=== PATIENT | female | born 1975 | race Hispanic/Latino ===

== ENCOUNTER 2019-10-05 01:21 | Emergency (ER) | payer OTHER ==
[~2019-10-05] VITALS: Ht 149.9 cm; Wt 65.8 kg
--- OUTSIDE RECORDS SUMMARY | ~2019-10-05 | XMS | Encounter Summary ---
Demographics + + + | Address | [address] | | | [place] [address] | + + + | Home Phone | | + + + | Preferred Language | Unknown | + + + | Marital Status | Single | + + + | Zoroastrianism Affiliation | 1041 | + + + | Race | Unknown | + + + | Ethnic Group | Unknown | + + + Author + + + | Author | [facility] | | | and [place] | + + + | Organization | [facility] | | | and [place] | + + + | Address | Unknown | + + + | Phone | Unavailable | + + + Support + + +---------+ + | Name | Relationship | Address | Phone | + + +---------+ + | Augusta Mcgrath | ECON | Unknown | | + + +---------+ + Care Team Providers + +------+ + | Care Boiler Repairman Name | Role | Phone | + +------+ + | Ashli Berman | PCP | | + +------+ + Encounter Details +--------+ + + + + | Date | Type | Department | Care Team | Description | +--------+ + + + + | 04/01/ | Imaging | [facility] | Provider, | | | 2019 | Exam | [facility] | [address] | | | | | IMAGING [address] | [address] | | | | | [address] | [place] [address] | | | | | [place] [address] | | | | | | [phone] | | | +--------+ + + + + Social History + +-------+ +--------+------+ | Tobacco Use | Types | Packs/Day | Years | Date | | | | | Used | | + +-------+ +--------+------+ | Never Assessed | | | | | + +-------+ +--------+------+ + + + | Sex Assigned at | Date Recorded | | | | + + + | Not on file | | + + + documented as of this encounter Plan of Treatment Not on filedocumented as of this encounter Procedures + +--------+ + + + | Procedure Name | Priori | Date/Time | Associated Diagnosis | Comments | | | ty | | | | + +--------+ + + + | XR ANKLE RIGHT 3 + | Routin | 08/10/2016 | | Results for this | | VW | e | 12:00 AM | | procedure are in the | | | | PDT | | results section. | + +--------+ + + + documented in this encounter Results XR Ankle Right 3 + Vw (08/10/2016 12:00 AM PDT) + + | Specimen | + + | | + + + + + | Narrative | Performed At | + + + | External films for comparison only | [facility] | | | | | No results will be in the chart. | | + + + + +---------+ + + | Performing | Address | City/State/Zipcode | Phone Number | | Organization | | | | + +---------+ + + | [facility] | | | | + +---------+ + + documented in this encounter Visit Diagnoses Not on filedocumented in this encounter"
--- OUTSIDE RECORDS SUMMARY | ~2019-10-05 | XMS | Encounter Summary ---
Demographics + + + | Address | [address] | | | [place] [address] | + + + | Home Phone | | + + + | Preferred Language | Unknown | + + + | Marital Status | Single | + + + | Gnosticism Affiliation | 1041 | + + + | Race | Unknown | + + + | Ethnic Group | Unknown | + + + Author + + + | Author | [facility] | | | and [place] | + + + | Organization | [facility] | | | and [place] | [...] Team Providers + +------+ + | Care Chemical Recovery Operator Name | Role | Phone | + +------+ + | Ashli Berman | PCP | | + +------+ + Encounter Details +--------+ + + + + | Date | Type | Department | Care Team | Description | +--------+ + + + + | 11/27/ | Hospital | [facility] | Jonathan Tinajero | Right ankle pain, | | 2018 | Encounter | MED CTR [place] | [address] | unspecified | | | | [address] | [address] | chronicity | | | | [place] | [place] [address] | | | | | [address] | [phone] | | | | | [phone] | | | +--------+ + + + + Social History + +-------+ +--------+------+ | Tobacco Use | Types | Packs/Day | Years | Date | | | | | Used | | + +-------+ +--------+------+ | Never Smoker | | | | | + +-------+ +--------+------+ + +---+---+---+ | Smokeless Tobacco: | | | | | Former User | | | | + +---+---+---+ + + + | Sex Assigned at | Date Recorded | | | | + + + | Not on file | | + + + documented as of this encounter Medications at Time of Discharge + + + +---------+--------+ + | Medication | Sig | Dispensed | Refills | Start | End Date | | | | | | Date | | + + + +---------+--------+ + | Cetirizine HCl | Take by mouth. | | 0 | | | | (ZYRTEC ALLERGY PO) | | | | | | + + + +---------+--------+ + | IBUPROFEN PO | Take by mouth. | | 0 | | | + + + +---------+--------+ + | levothyroxine | Take 100 mcg by | | 0 | | | | (SYNTHROID) 100 mcg | mouth every morning | | | | | | tablet | (before breakfast). | | | | | + + + +---------+--------+ + documented as of this encounter Plan of Treatment Not on filedocumented as of this encounter Procedures + +--------+ + + + | Procedure Name | Priori | Date/Time | Associated Diagnosis | Comments | | | ty | | | | + +--------+ + + + | XR ANKLE RIGHT 3 + | Routin | 11/27/2017 | Right ankle pain, | Results for this | | VW | e | 9:12 AM | unspecified | procedure are in the | | | | PDT | chronicity | results section. | + +--------+ + + + documented in this encounter Results XR Ankle Right 3 + Vw (11/27/2017 9:12 AM PDT) + + | Specimen | + + | | + + + + + | Narrative | Performed At | + + + | XR ANKLE RIGHT 3 + VW 11/27/2017 9:12 AM HISTORY: RIGHT ANKLE | [facility] | | PAIN. COMPARISON: None. FINDINGS: There are no acute osseous | | | abnormalities. No significant degenerative changes are seen. Bone | | | mineralization is normal. Soft tissue structures are unremarkable. | | | IMPRESSION - No acute osseous findings. Dictated and Signed by: | | | Mor Taylor MD Electronically signed: 11/27/2017 9:15 AM | | + + + + + | Procedure Note | + + | Tommy, Rad Results In - 11/27/2017 9:19 AM PDT XR ANKLE RIGHT 3 + VW 11/27/2017 9:12 AM | | | | HISTORY: RIGHT ANKLE PAIN. | | | | COMPARISON: None. | | | | FINDINGS: | | There are no acute osseous abnormalities. No significant degenerative changes | | are seen. Bone mineralization is normal. Soft tissue structures are | | unremarkable. | | | | IMPRESSION - | | No acute osseous findings. | | | | Dictated and Signed by: Mor Taylor MD | | Electronically signed: 11/27/2017 9:15 AM | + + + +---------+ + + | Performing | Address | City/State/Zipcode | Phone Number | | Organization | | | | + +---------+ + + | [facility] | | | | + +---------+ + + documented in this encounter Visit Diagnoses + + | Diagnosis | + + | Right ankle pain, unspecified chronicity | + + documented in this encounter"
--- OUTSIDE RECORDS SUMMARY | ~2019-10-05 | XMS | Encounter Summary ---
Demographics + + + | Address | [address] | | | [place] [address] | + + + | Home Phone | | + + + | Preferred Language | Unknown | + + + | Marital Status | Single | + + + | Nondenominational Affiliation | 1041 | + + + | Race | Unknown | + + + | Ethnic Group | Unknown | + + + Author + + + | Author | [facility] | | | and [place] | + + + | Organization | [facility] | | | and [place] | [...] Team Providers + +------+ + | Care Concrete Wall Grinder Operator Name | Role | Phone | + +------+ + PCP | Unavailable | + +------+ + Encounter Details +--------+ + + + + | Date | Type | Department | Care Team | Description | +--------+ + + + + | 09/03/ | [facility] | [facility] | | | | 2007 | Encounter | MED CTR GENERIC OP | | | | | | CONV DEPT [address] | | | | | | [address] [place], | | | | | | [place] [address] | | | | | | [phone] | | | +--------+ + + + [...] Not on filedocumented as of this encounter Visit Diagnoses Not on filedocumented in this encounter"
--- OUTSIDE RECORDS SUMMARY | ~2019-10-05 | XMS | Encounter Summary ---
Demographics + + + | Address | [address] | | | [place] [address] | + + + | Home Phone | | + + + | Preferred Language | Unknown | + + + | Marital Status | Single | + + + | Baptist Affiliation | 1041 | + + + | Race | Unknown | + + + | Ethnic Group | Unknown | + + + Author + + + | Author | [facility] | | | and [place] | + + + | Organization | [facility] | | | and [...] Team Providers + +------+ + | Care Motion Picture Cameraman Name | Role | Phone | + +------+ + | Ashli Berman | PCP | | + +------+ + Reason for Visit +--------+--------+ + | Reason | Onset | Comments | | | Date | | +--------+--------+ + | Other | 12/05/ | | | | 2017 | | +--------+--------+ + | Other | 12/06/ | replace bocorrina | | | 2018 | | +--------+--------+ + Encounter Details +--------+ + + + + | Date | Type | Department | Care Team | Description | +--------+ + + + + | 12/05/ | Telephone | [facility] | Jonathan Tinajero | Other; Other | | 2018 | | ORTHOPEDIC SURGERY | [address] | (replace boot) | | | | [address] | [address] [facility] | | | | | [place] | [place] [address] | | | | | [address] | [phone] | | | | | [phone] | | | +--------+ + + + [...] + + documented as of this encounter Miscellaneous Notes Telephone Encounter - Velma Berger Medical Assistant - 12/15/2017 11:28 AM Calmigdalia Shepard returned my phone call and wanted to re-schedule her appointment to be seen with Do michael Tinajero. At the time of this appointment she would like to be fitted for a small CAM rodgers t. Patient was re-scheduled for 01/15/2018 at 1000. elephone Encounter - Velma Berger Medi cal Local Sales Associate - 12/08/2017 8:54 AM Calmigdalia Shepard returned my phone call about receiving a different boot. I gave her Jimenez's number so she can do dawn checking. She is to call me back as soon as she figures out if she would like to come to clinic for a nurse visit and ge t a boot or if she would like me to send the prescription to her. elephone Encounter - Velma Berger Medical Assistant - 12/07/2017 11:57 AM PDTCalled patient and left a brief voice mail to return our phone call. Dr. Tinajero had wrote a prescription for her to receive a new boot. She is welcome to come b ack to [facility] [place] for a nurse visit to get fitted with one or we can send the prescription to her house. Please verify address if she wants us to send it to her. elephone Encounter - Velma Berger Medical Assistant - 12/06/2017 10:22 AM PDTPatient returned phone call and specified dea t she is wearing a boot she received from a previous ankle injury (2 years ago) which as she states is up to her calf and has been interfering with work and normal everyday activities. She is curious if Dr. Tinajero would be okay with prescribing her a smaller boot. Will defer to Dr. Tinajero and will relay response to patient once received.Electronically si gned by Lc Molina at 12/06/2017 10:29 AM PDTTelephone Encounter - Velma Berger Medical Assistant - 12/06/2017 9:23 AM PDTCalled and left a brief mess age for Kelly Shepard to return our phone call to inform her that we are happy to get her a new boot although there is a good chance there will be an out of pocket expense. Electronic ally signed by Lc Molina at 12/06/2017 9:28 AM PDTTelephone Candelarioo adam - Magalis Siegel - 12/05/2017 3:30 PM PDTPatient called requesting a new boot be or dered that fits better if insurance will pay for it. Please contact patient at [phone] documented in this encou nter Plan of Treatment Not on filedocumented as of this encounter Visit Diagnoses Not on filedocumented in this encounter"
--- OUTSIDE RECORDS SUMMARY | ~2019-10-05 | XMS | Encounter Summary ---
Demographics + + + | Address | [address] | | | [place] [address] | + + + | Home Phone | | + + + | Preferred Language | Unknown | + + + | Marital Status | Single | + + + | Jewish Affiliation | 1041 | + + + | Race | Unknown | + + + | Ethnic Group | Unknown | + + + Author + + + | Author | [facility] | | | and [place] | + + + | Organization | [facility] | | | and [place] [...] Team Providers + +------+ + | Care Sleeve Presser Operator Name | Role | Phone | [...] | MED CTR EXTERNAL | [address] | | | | | IMAGING [address] | [address] | | | | | [address] | [place] [address] | | | | | [place] [address] | | | | | | [phone] | | | +--------+ + + + [...] | + +--------+ + + + | MRI ANKLE RIGHT WO | Routin | 11/09/2017 | | Results for this | | CONTRAST | e | 12:00 AM | | procedure are in the | | | | PDT | | results section. | + +--------+ + + + documented in this encounter Results MRI Ankle Right wo Contrast (11/09/2017 12:00 AM PDT) + + | Specimen [...]
--- OUTSIDE RECORDS SUMMARY | ~2019-10-05 | XMS | Encounter Summary ---
Demographics + + + | Address | [address] | | | [place] [address] | + + + | Home Phone | | + + + | Preferred Language | Unknown | + + + | Marital Status | Single | + + + | Presybeterian Affiliation | 1041 | + + + | Race | Unknown | + + + | Ethnic Group | Unknown | + + + Author + + + | Author | [facility] | | | and [place] | + + + | Organization | [facility] | | | and [place] [...] Team Providers + +------+ + | Care Manager Center Name | Role | Phone | + +------+ + | Ashli Berman | PCP | | + +------+ + Encounter Details +--------+ + + + + | Date | Type | Department | Care Team | Description | +--------+ + + + + | 02/07/ | Hospital | [facility] | Jonathan Tinajero | Left foot pain | | 2018 | Encounter | MED [facility] | [address] | | | | | [address] | [address] | | | | | [place] | [place] [address] | | | | | [address] | [phone] | | | | | [phone] | | | +--------+ + + + [...] | | | + +---+---+---+ + + +---------+ + | Alcohol Use | Drinks/Week | oz/Week | Comments | + + +---------+ + | Yes | | | very occasional | + + +---------+ + + + + | Sex Assigned at [...] + +--------+ + + + | XR FOOT LEFT 3 + VW | Routin | 02/07/2018 | Left foot pain | Results for this | | | e | 2:16 PM | | procedure are in the | | | | PST | | results section. | + +--------+ + + + documented in this encounter Results XR Foot Left 3 + Vw (02/07/2018 2:16 PM PST) + + | Specimen | + + | | + + + + + | Narrative | Performed At | + + + | CLINICAL INFORMATION: LEFT FOOT PAIN. COMPARISON: None | [facility] | | available. FINDINGS: 3 views of the left foot. Bones: No | | | fracture or dislocation. No periostitis or erosion. No pes planus. | | | Borderline hallux valgus deformity. Joints: Mild first | | | metatarsophalangeal joint degeneration. Soft tissue: No swelling | | | or abnormal calcification. IMPRESSION - Mild first | | | metatarsophalangeal joint degeneration. Borderline hallux valgus | | | deformity. Dictated and Signed by: Braulio Ivey MD | | | Electronically signed: 02/07/2018 3:35 PM | | + + + + + | Procedure Note | + + | Tommy, Rad Results In - 02/07/2018 3:38 PM PST CLINICAL INFORMATION: LEFT FOOT PAIN. | | | | COMPARISON: None available. | | | | FINDINGS: | | 3 views of the left foot. | | | | Bones: No fracture or dislocation. No periostitis or erosion. No pes planus. | | Borderline hallux valgus deformity. | | | | Joints: Mild first metatarsophalangeal joint degeneration. | | | | Soft tissue: No swelling or abnormal calcification. | | | | IMPRESSION - | | Mild first metatarsophalangeal joint degeneration. | | | | Borderline hallux valgus deformity. | | | | Dictated and Signed by: Braulio Ivey MD | | Electronically signed: 02/07/2018 3:35 PM | + + + +---------+ + + | Performing | Address | City/State/Zipcode | Phone Number | | Organization | | | | + +---------+ + + | [facility] | | | | + +---------+ + + documented in this encounter Visit Diagnoses + + | Diagnosis | + + | Left foot pain Pain in limb | + + documented in this encounter"
--- OUTSIDE RECORDS SUMMARY | ~2019-10-05 | XMS | Encounter Summary ---
Demographics + + + | Address | [address] | | | [place] [address] | + + + | Home Phone | | + + + | Preferred Language | Unknown | + + + | Marital Status | Single | + + + | Mormonism Affiliation | 1041 | + + + | Race | Unknown | + + + | Ethnic Group | Unknown | + + + Author + + + | Author | [facility] | | | and [place] | + + + | Organization | [facility] | | | and [place] [...] Team Providers + +------+ + | Care Side Splitter Name | Role | Phone | + +------+ + | Ashli Berman | PCP | | + +------+ + Reason for Visit +--------+--------+ + | Reason | Onset | Comments | | | Date | | +--------+--------+ + | Other | 01/23/ | Appointment Conflict | | | 2018 | | +--------+--------+ + Encounter Details +--------+ + + + + | Date | Type | Department | Care Team | Description | +--------+ + + + + | 01/23/ | Telephone | [facility] | Jonathan Tinajero | Other (Appointment | | 2018 | | ORTHOPEDIC SURGERY | [address] | Conflict) | | | | [address] | [address] [place] | | | | | [place] | [place] [address] | | | | | [address] | [phone] | | | | | [phone] | | | +--------+ + + + [...] this encounter Miscellaneous Notes Telephone Encounter - Gilma Oakley - 01/23/2018 10:47 AM PSTPatient called to kasia chaves appointment with Dr Tinajero due to an appt conflict with her daughter. She was offered an earlier appt but declined them due to her work schedule. Will route to [facility] Joanne harrington for review. Patient contact # [phone]. documented in this encounter Plan of Treatment Not on filedocumented as of this encounter Visit Diagnoses Not on filedocumented in this encounter"
--- OUTSIDE RECORDS SUMMARY | ~2019-10-05 | XMS | Encounter Summary ---
Demographics + + + | Address | [address] | | | [place] [address] | + + + | Home Phone | | + + + | Preferred Language | Unknown | + + + | Marital Status | Single | + + + | Restorationism Affiliation | [id number] | + + + | Race | Unknown | + + + | Ethnic Group | Unknown | + + + Author + + + | Author | [facility] | | | and [place] | + + + | Organization | [facility] | | | and [place] | [...] Team Providers + +------+ + | Care Scout Name | Role | Phone | + +------+ + | Ashli Berman | PCP | | + +------+ + Reason for Visit + + + | Reason | Comments | + + + | Follow-up, Office | Right foto and ankle issues | | Visit | | + + + Encounter Details +--------+---------+ + + + | Date | Type | Department | Care Team | Description | +--------+---------+ + + + | 02/07/ | Office | [facility] | Jonathan Tinajero | Peroneal tendonitis | | 2018 | Visit | ORTHOPEDIC SURGERY | MD [address] | of right lower | | | | [address] [place] | [address] [place] | extremity (Primary | | | | [place] | [place] [address] | Dx); Stress reaction | | | | [id number] | [phone] | of left foot, | | | | [phone] | | initial encounter | +--------+---------+ + + + Social History + +-------+ [...] + + documented as of this encounter Last Filed Vital Signs + + + + + | Vital Sign | Reading | Time Taken | Comments | + + + + + | Blood Pressure | - | - | | + + + + + | Pulse | - | - | | + + + + + | Temperature | - | - | | + + + + + | Respiratory Rate | - | - | | + + + + + | Oxygen Saturation | - | - | | + + + + + | Inhaled Oxygen | - | - | | | Concentration | | | | + + + + + | Weight | 67.1 kg (148 lb) | 02/07/2018 2:02 PM | | | | | PST | | + + + + + | Height | 149.9 cm (4' 11") | 02/07/2018 2:02 PM | | | | | PST | | + + + + + | Body Mass Index | 29.89 | 02/07/2018 2:02 PM | | | | | PST | | + + + + + documented in this encounter Patient Instructions Patient Instructions Jonathan Tinajero MD - 02/07/2018 1:15 PM PST Stress Fracture Stress fractures are very small, fine breaks in a bone. They most often occur in the bones of the lower legs and feet. Stress fractures are caused by repeated shock to the bone. They are most common with high-impact sports, such as basketball, tennis, and running. Poorly cus hioned shoes, hard surfaces, tight muscles or tendons, and a sudden increase in exercise teagan e or intensity can contribute. Symptoms of stress fractures A stress fracture may cause sharp pain that slowly increases during activity and goes away with rest. The pain often gets worse when weight is put on the leg or foot. In some cases, a stress fracture may cause no pain at all. Your evaluation Your doctor will ask you questions about your activities and your health history. Be sure t o tell your doctor about any changes to your exercise or training routine, such as a change in playing surface. Stress fractures don t always show up on X-rays, so your doctor may or narayan bone scans, or magnetic resonance imaging (MRI). Treating stress fractures Rest is the best way to treat a stress fracture. If the leg or foot is not rested, the frac ture will likely become worse and harder to heal. To ensure proper healing: Replace high-impact activities with low impact ones, such as swimming or cycling, until the fracture has healed. This takes about6 [id number]. Use ice, heat, and [id number] pain relievers as directed by your doctor. Use crutches as directed by your doctor if walking is painful. Wear a special walking cast or shoe if your doctor recommends. These can improve healing of certain types of fractures. Stretch and warm-up before activities. Ease back into activity when your doctor gives you the OK. Preventing stress fractures To help prevent stress fractures: Ease into new sports activity. If you run, don t start at5 miles a day. Instead, sta rt with1 mile and gradually increase your miles. Alternate your activities. Work low-impact activities into your routine. If you re a woman, be sure to get enough calcium and vitamin D. Ask your doctor about supplements. Be sure your shoes are right for the activity you re doing. Don t wear shoes that ar e worn out. Stop an activity if you have pain or swelling. Rest until the pain goes away. Date Last Reviewed: 01/20/201519994702-0915 [employer]. [address] [place] [address]. All righ ts reserved. This information is not intended as a substitute for professional medical care. Always follow your healthcare professional's instructions. documented in this encounter Progress Notes Jonathan Tinajero MD - 02/07/2018 1:15 PM PSTFormatting of this note might be different fro m the original. [facility] HISTORY AND PHYSICAL EXAMINATION Pt. Name/Age/: Kelly Shepard 43 y.o. 1975 Primary Care Physician: Shayna Berman Chief Complaint/Reason for Visit: Follow-up, Office Visit (Right foto and ankle issues) History of Present Illness: The patient is a pleasant 43 y.o. female who presents with continued right ankle pain and w ith left foot pain. She reports that her left foot is hurt over the fourth ray for the past few months. She has certain pairs of shoes in which it feels better. Otherwise he continu es to hurt in that area. She's had no known injury to it. With regards to her right ankle, she continues to have pain behind the fibula. She has not been able to get a cam walking boot yet. Past Medical History: Past Medical History: Diagnosis Date Fractures 3rd toe fracture Hyperthyroidism 2014 Past Surgical History: Procedure Laterality Date DILATION AND CURETTAGE OF UTERUS HYSTERECTOMY Allergies: No Known Allergies Current Medications: Current Outpatient Prescriptions Medication Sig Dispense Refill Cetirizine HCl (ZYRTEC ALLERGY PO) Take by mouth. IBUPROFEN PO Take by mouth. levothyroxine (SYNTHROID) 100 mcg tablet Take 100 mcg by mouth every morning (before br eakfast). No current facility-administered medications for this visit. Family History: Family History Problem Relation Age of Onset High blood pressure Mother Diabetes Father Other cancer Sister Social History: Social History Social History Marital status: Single Spouse name: N/A Number of children: N/A Years of education: N/A Occupational History Not on file. Social History Main Topics Smoking status: Never Smoker Smokeless tobacco: Former User Alcohol use Yes Comment: very occasional Drug use: No Sexual activity: Not on file Other Topics Concern Not on file Social History Narrative No narrative on file Review of Systems Musculoskeletal: [] Physical handicaps [] Back or shoulder pain []Rheumatoid disease [x] Osteoarthritis [x] Joint pain [] Joint swelling []Gout [] Leg cramps at night Endocrine: [] Thyroid [] Diabetes Admission Weight: Weight: 67.1 kg (148 lb) BMI: Body mass index is 29.89 kg/m. Physical Examination: Ht 1.499 m (4' 11") | Wt 67.1 kg (148 lb) | BMI 29.89 kg/m General: Alert, oriented, no acute distress HEENT: Normocephalic, atraumatic Cardiovascular: Regular rate and rhythm Respiratory: Breathing normally at a regular rate Ortho Exam bilateral lower extremity exam: Tender posterior to the right fibula over the peroneal tendons. She has some bogginess ove r the tendons and over the ATFL and CFL. She has pain with resisted inversion. Less pain w ith resisted eversion. No significant laxity with anterior drawer testing in either neutral or plantar flexion. Regards to left foot, she is tender over the fourth metatarsal. She is nontender otherwise over the foot. No obvious clinical deformity. Diagnostic Studies: Imaging 3 views of the left foot obtained today demonstrate thickening of the second, third, fourth , and fifth rays. She attributes this to an old fracture she had in the left foot and a denisse nge in gait pattern to where she doesn't put much weight on her big toe. Labs- No results found for: NA, K, CL, CO2, ANIONGAP, GLU, BUN, CREA, GFRNONAA, CALCIUM, ALBUMIN, BILITOT, TOTALPROTEIN, AST, ALT, ALKPHOS, WBC, HGB, HCT, MCV, LABPLAT, PLT, ESR, CRP, LIPAS E, AMYLASE, PT, INR Assessment and Plan: 1. Peroneal tendonitis of right lower extremity 2. Stress reaction of left foot, initial encounter The patient is a pleasant 43 y.o. female who presents with right peroneal tendinitis and co ncern for left fourth metatarsal stress reaction. Treatment options were discussed with the patient including non-operative treatment modalities. Considering the nature of the patient' s condition, decision was made to proceed with placing a cam walking boot on the right lower extremity. This will help calm down the tendinitis. Rest is the most important thing for this. If that fails, we could consider surgery but that would be a last resort. With regar ds to the left foot, I recommended that she continue to wear shoes which are comfortable. I discussed putting her in a hard soled shoe or boot but she had reluctance to do this. She has a pair of shoes where it does not walk when she hurts. I recommended that she wear thos e whenever she is walking about. This includes most of the time at home. Follow-up: Return in about 2 months (around 04/09/2018). with no x-ray Portions of this report were transcribed using voice recognition software. Every effort wa s made to ensure accuracy; however, inadvertent computerized redevelopment manager errors may be pre sent. I appreciate the opportunity to help with the management of this patient. Jonathan Tinajero MD [facility] umented in this encounter Plan of Treatment Not on filedocumented as of this encounter Visit Diagnoses + + | Diagnosis | + + | Peroneal tendonitis of right lower extremity - Primary | + + | Stress reaction of left foot, initial encounter | + + documented in this encounter
--- OUTSIDE RECORDS SUMMARY | ~2019-10-05 | XMS | Encounter Summary ---
Demographics + + + | Address | [address] | | | [place] [address] | + + + | Home Phone | | + + + | Preferred Language | Unknown | + + + | Marital Status | Single | + + + | Yazdanism Affiliation | 1041 | + + + | Race | Unknown | + + + | Ethnic Group | Unknown | + + + Author + + + | Author | [facility] | | | and [place] | + + + | Organization | [facility] | | | and [place] [...] Team Providers + +------+ + | Care Slip Tender Name | Role | Phone | + +------+ + | Ashli Berman | PCP | | + +------+ + Reason for Visit + +--------+ + | Reason | Onset | Comments | | | Date | | + +--------+ + | Foot Pain | 01/01/ | | | | 2018 | | + +--------+ + Encounter Details +--------+ + + + + | Date | Type | Department | Care Team | Description | +--------+ + + + + | 01/01/ | Telephone | [facility] | Jonathan Tinajero | Foot Pain | | 2018 | | ORTHOPEDIC SURGERY | [address] | | | | | [address] [place] | [address] [place] | | | | | [place] | [place] [address] | | | | | [address] | [phone] | | | | | [phone] | | | +--------+ + + + [...] Miscellaneous Notes Telephone Encounter - Velma Berger I, Concrete Stone Fabricator - 01/02/2018 3:03 PM PDTI call ed and spoke with Kelly Sant[place] Devyn she mentioned that the pain she is having in her left foot feels like a bee sting. 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 I mentioned if that worked to continue to apply pressure that the center of her foot along with icing and elevat ing her foot. At this time she would like to keep her appointment on 01/15/2018 to discuss th is issue. elephone Encounter - Velma Berger I Concrete Stone Fabricator - 01/01/2018 9:36 AM PDTP pura advise. 9 :36 AM PDTTelephone Encounter - Magalis Siegel - 01/01/2018 8:10 AM PDTPatient called jenn lomax that she had images of her foot pushed of Isite. Patient would like to know what the r esults are and what to do about the pain and numbness she is experiencing in her right foot . Please advise and call patient at [phone] Patient is scheduled 01/15/18 documented in this encounter Plan of Treatment Not on filedocumented as of this encounter Visit Diagnoses Not on filedocumented in this encounter"
--- OUTSIDE RECORDS SUMMARY | ~2019-10-05 | XMS | Clinical Summary ---
Demographics + + + | Address | [address] | | | [place] [address] | + + + | Home Phone | | + + + | Preferred Language | Unknown | + + + | Marital Status | Single | + + + | Mu-Ism Affiliation | 1041 | + + + | Race | Unknown | + + + | Ethnic Group | Unknown | + + + Author + + + | Author | [facility] | | | and [place] | + + + | Organization | [facility] | | | and [...] Team Providers + +------+ + | Care Sheetmetal Patternmaker Name | Role | Phone | + +------+ + | Ashli Berman | PCP | | + +------+ + Allergies No Known Allergies Medications + + + +---------+------+------+-------+ | Medication | Sig | Dispensed | Refills | Star | End | Statu | | | | | | t | Date | s | | | | | | Date | | | + + + +---------+------+------+-------+ | levothyroxine | Take 100 mcg by | | 0 | | | Activ | | (SYNTHROID) 100 mcg | mouth every morning | | | | | e | | tablet | (before breakfast). | | | | | | + + + +---------+------+------+-------+ | Cetirizine HCl | Take by mouth. | | 0 | | | Activ | | (ZYRTEC ALLERGY PO) | | | | | | e | + + + +---------+------+------+-------+ | IBUPROFEN PO | Take by mouth. | | 0 | | | Activ | | | | | | | | e | + + + +---------+------+------+-------+ Active Problems + + + | Problem | Noted Date | + + + | Peroneal tendonitis of right lower extremity | 02/07/2018 | + + + | Stress reaction of left foot | 02/07/2018 | + + + Family History + + +------+ + | Medical History | Relation | Name | Comments | + + +------+ + | Diabetes | Father | | | + + +------+ + | High blood pressure | Mother | | | + + +------+ + | Other cancer | Sister | | | + + +------+ + + +------+--------+ + | Relation | Name | Status | Comments | + +------+--------+ + | Father | | Alive | | + +------+--------+ + | Mother | | Alive | | + +------+--------+ + | Sister | | Alive | | + +------+--------+ + Social History + +-------+ +--------+------+ | [...] on file | | + + + Last Filed Vital Signs + + + [...] | | + + + + + Plan of Treatment + + + + + | Health Maintenance | Due Date | Last | Comments | | | | Done | | + + + + + | Med Mgmt: TSH | | | | | | 7 | | | + + + + + | Medication | | | | | Management | 7 | | | + + + + + | Cervical Cancer | | | | | Screening (Pap) | 7 | | | + + + + + | Vaccine: Influenza | | | | | (#1) | 0 | | | + + + + + | Vaccine: | | 09/26/19 | | | Dtap/Tdap/Td (6 - | 2 | 12, | | | Td) | | 02/08/19 | | | | | 83, | | | | | 04/07/18 | | | | | 82, | | | | | Addition | | | | | al | | | | | history | | | | | exists | | + + + + + Results Not on filefrom Last 3 Months Insurance + +--------+ +--------+ +---------+------+ | Payer | Benefi | Subscriber | Effect | Phone | Address | Type | | | t Plan | ID | tim | | | | | | / | | Dates | | | | | | Group | | | | | | + +--------+ +--------+ +---------+------+ | [employer] | [facility] | [id number] | 05/12/19 | [phone] | | PPO | | PLAN | PEBB | | 18-Pre | 5 | | | | | PROV | | sent | | | | | | CHOICE | | | | | | + +--------+ +--------+ +---------+------+ + +--------+ +--------+ + + | Guarantor Name | Accoun | Relation to | Date | Phone | Billing Address | | | t Type | Patient | of | | | | | | | | | | + +--------+ +--------+ + + | Kelly Shepard | Person | Self [birth year] | | | al/Fam | | 1975 | [phone] | [place] [address] | | | sathish | | | 4 (Home) | | + +--------+ +--------+ + + Advance Directives + + + + + | Type | Date Recorded | Patient | Explanation | | | | Log Check Scaler | | + + + + + | Power of | | | | | Equipment Operator/Laborer | | | | + + + + + | Advance | 11/27/2017 9:02 | | | | Directive | AM | | | + + + + +
--- OUTSIDE RECORDS SUMMARY | ~2019-10-05 | XMS | Encounter Summary ---
Demographics + + + | Address | [address] | | | [place] [address] | + + + | Home Phone | | + + + | Preferred Language | Unknown | + + + | Marital Status | Single | + + + | Temple Affiliation | 1041 | + + + | Race | Unknown | + + + | Ethnic Group | Unknown | + + + Author + + + | Author | [facility] | | | and [place] | + + + | Organization | [facility] | | | and [...] Team Providers + +------+ + | Care Grand Scribe Name | Role | Phone | + +------+ + PCP | Unavailable | + +------+ + Encounter Details +--------+ + + + + | Date | Type | Department | Care Team | Description | +--------+ + + + + | 01/07/ | Hospital [facility] | | [facility] | [facility] | En[facility] | [facility] | | | | | | [address] | | | | | | [place] | | | | | | [address] | | | | | | [phone] | | | +--------+ + + + [...]
--- OUTSIDE RECORDS SUMMARY | ~2019-10-05 | XMS | Encounter Summary ---
Demographics + + + | Address | [address] | | | [place] [address] | + + + | Home Phone | | + + + | Preferred Language | Unknown | + + + | Marital Status | Single | + + + | Adventist Affiliation | [id number] | + + + | Race | Unknown | + + + | Ethnic Group | Unknown | + + + Author + + + | Author | [facility] | | | and [place] | + + + | Organization | [facility] | | | and [...] Team Providers + +------+ + | Care [place] Name | Role | Phone | + +------+ + | Ashli Berman | PCP | | + +------+ + Reason for Visit + + + | Reason | Comments | + + + | New Patient | right ankle injury DOI 2 years | + + + Evaluate & Treat (Routine) +--------+--------+ + + + + | Status | Reason | Specialty | Diagnoses / | Referred By | Referred To | | | | | Procedures | Contact | Contact | +--------+--------+ + + + + | Closed | | Orthopedic | Diagnoses | Berman, | Tan[place], | | | | Surgery | Pain in | NICHOLAS Cornelius | Jonathan | | | | | right ankle | [address] | | | | | and joints | [place], | [address] | | | | | of right | [address] [place] | | | | | foot | [place], | [place], [place] | | | | | | [place] [address] | [address] | | | | | | Phone: | Phone: | | | | | | [phone] | [phone] | | | | | | Fax: | Fax: | | | | | | [phone] | [phone] | +--------+--------+ + + + + Encounter Details +--------+---------+ + + + | Date | Type | Department | Care Team | Description | +--------+---------+ + + + | 11/27/ | Office | [facility] | Jonathan Tinajero | Peroneal tendonitis | | 2018 | Visit | ORTHOPEDIC SURGERY | MD [address] | of right lower | | | | [address] | [address] [place] | extremity (Primary | | | | [place], [place] | [place] [address] | Dx); Right ankle | | | | [address] | [phone] | pain, unspecified | | | | [phone] | | chronicity | +--------+---------+ + + + Social History [...] Weight | 67.1 kg (148 lb) | 11/27/2017 9:15 AM | | | | | PDT | | + + + + + | Height | 149.9 cm (4' 11") | 11/27/2017 9:15 AM | | | | | PDT | | + + + + + | Body Mass Index | 29.89 | 11/27/2017 9:15 AM | | | | | PDT | | + + + + + documented in this encounter Patient Instructions Patient Instructions Jonathan Tinajero MD - 11/27/2017 9:15 AM PDTFormatting of this note m ight be different from the original. Treating Strains and Sprains Strains and sprains happen when muscles or other soft tissues near your bones stretch or te ar. These injuries can cause bruising, swelling, and pain. To ease your discomfort and speed the healing of your strain or sprain, follow the tips below. Remember, a strain or sprain c an take 6 to 8 weeks to heal. Important Note: Do not give aspirin to children or teens without discussing it with your he althcare provider first. Ice first, heat later Use ice for the first 24 to 48 hours after injury. Ice helps prevent swelling and reduce pain. Ice the injury for no more than 20 minutes at a time and allow at least20 minutes b etween icing sessions. Apply heat after the first72 hours, once the swelling has gone down. Heat relaxes musc les and increases blood flow. Soak the injured area in warm water or use a heating pad set o n low for no more than 15 minutes at a time. Wrap and elevate Wrap an injured limb firmly with an elastic bandage. This provides support and helps pre vent swelling. Don t wear an elastic bandage overnight. Watch for tingling, numbness, or i ncreased pain. Remove the bandage immediately if any of these occurs. Elevate the injured area to help reduce swelling and throbbing. It s best to raise an injured limb above the level of your heart. Medicines Dwyl-cth-hsdwufg medicines such as acetaminophen or ibuprofen can help reduce pain. Some also help reduce swelling. Take medicine only as directed. Rest the area even if medicines are controlling the pain. Rest Rest the injured area by not using it for 24 hours. When you re ready, return slowly to your normal activities. Rest the injured area ofte n. Don t use or walk on an injured limb if it hurts. Date Last Reviewed: 03/13/201719997610-3536 [employer]. [address] [place] [address], [place] [address]. All [facility] ts reserved. This information is not intended as a substitute for professional medical care. Always follow your healthcare professional's instructions. documented in this encounter Progress Notes Jonathan Tinajero MD - 11/27/2017 9:15 AM PDTFormatting of this note might be different fro m the original. [facility] HISTORY AND PHYSICAL EXAMINATION Pt. Name/Age/: Kelly Shepard 42 y.o. 1975 Primary Care Physician: Shayna Berman Chief Complaint/Reason for Visit: New Patient (right ankle injury DOI 2 years ) History of Present Illness: The patient is a pleasant 42 y.o. female who presents with a two-year history of right ankl e pain. The pain began after she went running. As she ran, she heard a popping sound. She continued to run. Afterwards, she had lateral ankle pain. She has done physical therapy f or this without relief. That was done shortly after the injury. She has taken anti-inflamm atories and has tried ice and heat without significant relief. Walking, running, driving, a nd bending her knee make her pain worse. Getting off of her feet makes her pain feel better . She states her pain is a 2 out of 10 right now and a 6 out of 10 at its worst. She feels like her pain has been the same from last 2 years. She is able to do her normal daily acti vities. Of note, she did do well in the past with physical therapy. This is because she feels like the adhesive taping the did on her ankle made it feel much more stable. She does not use t obacco. Past Medical History: Past Medical History: Diagnosis [...] Smoker Smokeless tobacco: Former User Alcohol use Not on file Drug use: Unknown Sexual activity: Not on file Other Topics Concern Not on file Social History Narrative No narrative on file Review of Systems All of these are negative unless otherwise marked Eyes: [] Double vision [x] Glasses/contacts [] Failing vision Respiratory: [] Asthma/Wheezing [] Pneumonia [] Night sweats [] Shortness of breath [] Chronic cough [] Coughing up blood [] Exposure to tuberculosis Cardiovascular: [] Heart Problems [] Hypertension [] Heart murmur [] Palpitations [] Rheumatic fever [] Phlebitis [] Chest pain [x] Ankle swelling [] Leg cramps [] Raci ng heart [] Skipping beats [] Blood clots Urinary Tract: [] Painful urination [] Kidney Stones [] Any urine leakage [] Weak urine stream [x] Night urination [] Urine infections [] Bedwetting [] Blood in urine Ear/Nose/Throat: [] Frequent Colds [] Sinus Disease [] Nose obstruction [] Sneezing Spells [] Change in taste [] Artificial teeth [] Ears ringing [] Ear pain [] Hearing loss [] Teeth problems [] Hoarseness [] Neck swelling [] Sore throat [] Congestion [] Nosebleeds [] Nasal allergies Gastrointestinal: [] Abdominal pain [] Heartburn [] Blood from rectum [] Colitis [] Gallbladder problems [] Troubl e swallowing [x] Bloated stomach [] Change in stools [] Vomiting blood [] Nausea [] Hemorrhoids [] Jaundice [ ] Hepatitis [] Diarrhea [] Constipation [] Diverticulitis Musculoskeletal: [] Physical handicaps [] Back or shoulder pain []Rheumatoid disease [] Osteoarthritis [x] Joint pain [x] Joint swelling []Gout [] Leg cramps at night Skin: [] Skin rashes [] Itching/Burning [] Skin bruises easil y [] Artificial tanning [] Skin cancer [] Hair loss [] Changes in moles Psychiatric: [] Depression [] Suicidal thoughts [] Sleep pattern changes [] Appetite changes [] Recent counseling [] Nervousness/anxiety [] Physical violence [] Marital problems Neurological: [x] Headaches [] Seizures [] Stroke/TIA [] Faintness [] Tremors [x] Numbness [] Dizziness [] Changes in handwriting [] Memory loss [] Shooting pains Endocrine: [x] Thyroid [] Diabetes Systemic: [x]Weight loss/gain (over 10 lbs) []Fever/chills [x]Fatigue [x] Sleeping Difficulties [] Speech change [] Voice change Admission Weight: Weight: 67.1 kg (148 lb) BMI: Body mass index is 29.89 kg/m. Physical Examination: Ht 1.499 m (4' 11") | Wt 67.1 kg (148 lb) | BMI 29.89 kg/m General: Alert, oriented, no acute distress HEENT: Normocephalic, atraumatic Cardiovascular: Regular rate and rhythm Respiratory: Breathing normally at a regular rate Ortho Exam Bilateral ankle exam Sensation intact to light touch in the first dorsal webspace, medial, lateral, dorsal and p lantar foot. Dorsalis pedis and posterior tibial pulses 2+. Able to plantarflex, dorsiflex, anthony and invert the ankle. She is tender on the right ankle around the peroneal tendons and the CFL. She has no incre ased anterior drawer with the foot in either neutral or in plantarflexion. She has pain wit h resisted eversion new the peroneal tendons. I cannot make the tendons snap over the fibul a in clinic. Diagnostic Studies: Imaging MRI of the right ankle dated 11/09/2017 reviewed. Per my read, there is no manisha peroneal t endon tear. The ATFL, CFL, PTF all appeared be intact. There is no significant osteoarthro sis of the ankle joint. Labs- No results found for: NA, K, CL, CO2, ANIONGAP, GLU, BUN, CREA, GFRNONAA, CALCIUM, ALBUMIN, BILITOT, TOTALPROTEIN, AST, ALT, ALKPHOS, WBC, HGB, HCT, MCV, LABPLAT, PLT, ESR, CRP, LIPAS E, AMYLASE, PT, INR Assessment and Plan: 1. Peroneal tendonitis of right lower extremity 2. Right ankle pain, unspecified chronicity XR Ankle Right 3 + Vw The patient is a pleasant 42 y.o. female who presents with right ankle pain suspicious for peroneal irritation. Treatment options were discussed with the patient including non-operati ve treatment modalities. Considering the nature of the patient's condition, decision was mad eric to proceed with immobilization for about 4 weeks. The patient already has a boot at home. I asked her to wear a boot for about 4 weeks and wean out of it for 2 weeks. We'll see he r back in 6 weeks. If that does not help, we will discuss other treatment options including physical therapy. Follow-up: Return in about 6 weeks (around 01/08/2018). with no x-ray Portions of this report were transcribed using voice recognition software. Every effort wa s made to ensure accuracy; however, inadvertent computerized metaphysics teacher errors may be pre sent. I appreciate the opportunity to help with the management of this patient. Jonathan Tinajero MD [facility] umented in this encounter Plan of Treatment Not on filedocumented as of this encounter Results XR Ankle Right 3 [...] extremity - Primary | + + | Right ankle pain, unspecified chronicity | + + documented in this encounter
[~2019-10-05 01:21] MED LIST: AUGMENTIN 875-1 EACH PO; FLAGYL500 MG PO; GAS-X125 M1 PO; LEVOTHYROXINE25 MCG PO; NORCO 5-325 TA1 EACH PO; PERCOCET 5-3251 EACH PO; STOOL SOFTENER100 M1 PO; ZYRTEC10 MG PO
[2019-10-05] MEDS ORDERED: NORCO 5-325 TA1 EACH PO (02:40)
== END 2019-10-05 02:54 | disposition home or self-care (01) ==
LOC: ED 01:21
DX: U07.1 COVID-19 (principal); E03.9 Hypothyroidism, unspecified; D64.9 Anemia, unspecified; Z79.899 Other long term (current) drug therapy
CPT/HCPCS: 71045; 99284-25

== ENCOUNTER 2021-06-19 20:25 | Emergency (ER) | payer OTHER ==
[~2021-06-19] VITALS: Ht 149.9 cm; Wt 65.8 kg
[2021-06-19] MEDS ORDERED: EUTHYROX100 MCG PO (21:36)
[2021-06-19] MEDS ORDERED: PSEUDOEPHEDRIN120 MG PO (21:36)
--- NOTE | 2021-06-20 14:23 | EKG ---
[facility] [address] [facility] [place], [place] [address] Signed Sinus tachycardia Otherwise normal ECG No previous ECGs available Confirmed by JODY GONZALEZ MD ([id number]) on 06/20/2021 2:23:39 PM Electronically Signed By: JODY GONZALEZ MD 06/20/21 1423 PATIENT NAME: ALONDRA FUENTESELIN Electrocardiogram DATE OF : 79 PHYSICIAN: JODY GONZALEZ MD REPORT #: [id number] REPORT IS CONFIDENTIAL AND NOT TO BE RELEASED WITHOUT AUTHORIZATION
== END 2021-06-19 23:38 | disposition home or self-care (01) ==
LOC: ED 20:25
DX: J10.1 Influenza due to other identified influenza virus with other respiratory manifestations (principal); E03.9 Hypothyroidism, unspecified; D64.9 Anemia, unspecified; Z79.899 Other long term (current) drug therapy; Z20.822 Contact with and (suspected) exposure to COVID-19
CPT/HCPCS: 36415; 51701; 71045; 80053; 81001; 83605; 85025; 93005; 93010; 99284-25; A9270; C9803; J7030; U0003

== ENCOUNTER 2021-08-28 10:17 | Emergency (ER) | payer OTHER ==
[~2021-08-28] VITALS: Ht 149.9 cm; Wt 67.1 kg
[~2021-08-28 10:17] MED LIST changes: +EUTHYROX100 MCG PO; +PSEUDOEPHEDRIN120 MG PO
[2021-08-28] MEDS ORDERED: TRIAMCINOLONE A15 G1 TOP (10:51)
[2021-08-28] MEDS ORDERED: VALACYCLOVIR1000 MG PO (11:42)
== END 2021-08-28 12:13 | disposition home or self-care (01) ==
LOC: ED 10:17
DX: B02.9 Zoster without complications (principal); E03.9 Hypothyroidism, unspecified; Z79.899 Other long term (current) drug therapy
CPT/HCPCS: 99282

== ENCOUNTER 2021-08-31 07:43 | Emergency (ER) | payer OTHER ==
[~2021-08-31] VITALS: Ht 149.9 cm; Wt 67.1 kg
[~2021-08-31 07:43] MED LIST changes: +TRIAMCINOLONE A15 G1 TOP; +VALACYCLOVIR1000 MG PO
--- OUTSIDE RECORDS SUMMARY | 2021-08-31 07:46 | XMS ---
PreManage Notification: ELIN CARRERA Security Medical Radiation Therapist Events No recent Security Events currently on file CRITERIA MET - [facility] - 2 Visits in 30 Days CARE PROVIDERS There are no care providers on record at this time. Hermel[facility] has no Care Guidelines for this patient. Carolyn VISIT COUNT (12 MO.) [address] [facility] TOTAL 3 NOTE: Visits indicate total known visits. ED/C VISIT TRACKING (12 MO.) [facility] 07[facility] [place] [facility] COMPLAINT: - CHILLS, HEAD PRESSURE, CONGESTION, FEVER 08/28/2021 10:18 [facility] [place] TYPE: Emergency COMPLAINT: - SKIN PROBLEM 06/19/2021 20:26 [facility] [place] TYPE: Emergency COMPLAINT: - FLU SYMPTOMS DIAGNOSES: - Hypothyroidism, unspecified - Fever, unspecified - Other skilled nursing (current) drug therapy - Influenza due to other identified influenza virus with other respiratory manifestations - Contact with and (suspected) exposure to COVID-19 - Anemia, unspecified INPATIENT VISIT TRACKING (12 MO.) No inpatient visits to display in this time frame [email or web address]
[2021-08-31] MEDS ORDERED: ROBITUSSIN COU237 M2 PO (09:09)
--- NOTE | 2021-09-01 18:17 | EKG ---
[facility] [address] [facility] [place], [place] [address] Signed Sinus tachycardia Otherwise normal ECG No previous ECGs available Confirmed by JODY GONZALEZ MD ([id number]) on 09/01/2021 6:17:29 PM Electronically Signed By: JODY GONZALEZ MD 09/01/211816 PATIENT NAME: ALONDRAELIN MARTIN Electrocardiogram DATE OF : [birth year] PHYSICIAN: JODY GONZALEZ MD REPORT #: [id number] REPORT IS CONFIDENTIAL AND NOT TO BE RELEASED WITHOUT AUTHORIZATION
== END 2021-08-31 09:44 | disposition home or self-care (01) ==
LOC: ED 07:43
DX: U07.1 COVID-19 (principal); E03.9 Hypothyroidism, unspecified
CPT/HCPCS: 80053; 81001; 83605; 85025; 87040; 87502; 93005; 93010; 94640; 94664; A9270; C9803; U0003